=== PATIENT | male | born 1995 | race Caucasian/White ===

== ENCOUNTER 2018-01-28 12:15 | Emergency (ER) | payer OTHER ==
[~2018-01-28] VITALS: Ht 180.3 cm; Wt 63.5 kg
[2018-01-28] MEDS ORDERED: MOMETASONE FURO30 ML TOP (13:44)
== END 2018-01-28 13:55 | disposition home or self-care (01) ==
LOC: ER 12:15
DX: L20.89 Other atopic dermatitis (principal)